=== PATIENT | male | born 1960 | race Caucasian/White ===

== ENCOUNTER 2024-12-14 09:55 | Emergency (ER) | payer BC, SELFPAY ==
[2024-12-14 09:57] VITALS: BP 154/100
[2024-12-14 10:39] LABS: Urine Character Clear (Clear)
--- NOTE | 2024-12-14 10:57 | ED.GENMED ---
History of Present Illness
General
Chief Complaint: Abdominal Pain
Time Seen by Provider: 12/14/24 10:26
History of Present Illness
History of Present Illness:
64-year-old male presents to the emergency department for evaluation of left sided thoracic back pain. He states this pain seems to come and go intermittently over the past 2 years and previously was diagnosed with a muscular strain by his primary
care physician. He denies any obvious provoking or palliating factors. Pain does not radiate. Although triage note notes left lower abdominal pain he states that he has no pain in this area on my evaluation. Denies any hematuria or dark urine.
No night sweats or weight loss. He does note that he golfs once per week
Past History
Past History
ED Past Surgical History: Orthopedic (Slipped capital femoral epiphysis)
Social History
Tobacco: Non-smoker
Living: with family
Review of Systems
Review of Systems
Allergies reviewed?: Yes
All Other Systems: ROS reviewed and negative except as documented in HPI and ROS
Phy Exam
Physical Exam
Physical Exam:
GEN: Well appearing, NAD, WDWN
HEENT: Oral mucosa moist, no scleral icterus
Cardiac: Regular rate
Lung: No respiratory distress, no tachypnea
Abdomen: No abdominal rigidity, abdomen is soft and nontender
MSK: No gross deformity or injuries. No midline bony tenderness of the thoracic spine. No easily reproduced tenderness to the thoracic paraspinous musculature. Lumbar range of motion is normal with no reproduced tenderness.
Skin: Good color, no pallor or jaundice, no rashes
Neuro: AO x3, moves all extremities freely
Psych: Calm, cooperative
Course
Orders/Labs/Results
Orders:
Orders
12/14/24 10:07
Urinalysis Reflex To Culture Urgent
Date Specimen was Collected: 12/14/24
Time Specimen was Collected: 10:04
Vital Signs
Initial and Last Documented VS:
Initial Vital Signs
Temp Pulse Resp BP Pulse Ox
98.3 F 66 18 154/100 97
12/14/24 09:57 12/14/24 09:57 12/14/24 09:57 12/14/24 09:57 12/14/24 09:57
Last Documented Vital Signs
Temp Pulse Resp BP Pulse Ox
98.3 F 66 18 154/100 97
12/14/24 09:57 12/14/24 09:57 12/14/24 09:57 12/14/24 09:57 12/14/24 11:00
MDM/Problems Addressed
MDM/Problems Addressed:
Patient's physical exam is unremarkable. He has no abdominal tenderness warranting abdominal workup. Lack of hematuria is reassuring against kidney stone or occult renal cell neoplasm. Given the intermittent nature I suspect this is a myofascial
pain syndrome versus thoracic disc herniation/foraminal stenosis. Recommended him to undergo outpatient physical therapy through physician referral at his primary care physician office and consider outpatient MRI if worsening
*Pulse Oximetry
SaO2: 97
Oxygen Mode of Delivery: Room air
Patient hypoxic: no
*Critical Care Note
Total Time (30-74mins, 75-104mins- exclusive of procedures): Not Applicable
ED Attending Note
-
Portions of this chart may have been created with voice recognition software.� Occasional wrong word or��sound alike� substitutions may have occurred due to the inherent limitations of voice recognition software.
Discharge Plan
Departure
Patient Disposition: Home (Routine Discharge)
Date of Disposition: 12/14/24
Time of Disposition: 11:00
Patient with high blood pressure during this ER visit?: No
Discharge Problem:
Myofascial pain syndrome of thoracic spine
Instructions: Upper back pain
Prescriptions:
New
celecoxib 200 mg capsule
200 mg PO BID Qty: 14 0RF
No Action
VENTOLIN HFA
2 puff inhalation PRN PRN (Reason: prn)
Referrals:
Poli Stanley, DO [Family Provider, Family Practice]
Activity Restrictions/Additional Instructions:
Contact your primary doctor to discuss outpatient physical therapy, as well as the possible benefit of a thoracic spine MRI if symptoms do not improve or continue to be recurrent
Interventions
Interventions:
*Risk Screen - Suicide Last Done: 12/14/24 09:57
*General Assessment Last Done: 12/14/24 09:57
*Neglect/Abuse Screening Last Done: 12/14/24 09:57
*ED- Fall Risk Assessment Last Done: 12/14/24 11:07
*ED COVID-19 Vaccine History Last Done: 12/14/24 11:07
*Nursing Disposition Last Done: 12/14/24 11:07
QP-Lbxuwt-Bkuuvscdpi Assessment Last Done: 12/14/24 11:06
Discharge Date and Time
Discharge Date/Time: 12/14/24 11:15
Print Language: [place]
== END 2024-12-14 11:15 | disposition home or self-care (01) ==
LOC: EMR 09:55
PROVIDERS: EMERGENCY PHYSICIAN Student in an Organized Health Care Education/Training Program; FAMILY PHYSICIAN Family Medicine
DX: M79.18 Myalgia, other site (principal)
CPT/HCPCS: 99283; 81003